=== PATIENT | female | born 1965 | race Caucasian/White ===

== ENCOUNTER 2016-11-19 13:33 | Emergency (ER) | payer OTHER ==
[~2016-11-19] VITALS: Ht 162.6 cm; Wt 63.4 kg
[2016-11-19 13:42] VITALS: BP 121/77; TEMP 36.9; Ht 162.6 cm; Wt 63.4 kg
--- NOTE | 2016-11-19 14:19 | EMERGENCY ROOM VISIT NOTE ---
ED Visit Note First contact with patient: 13:55 I have seen and examined this patient with Valerio Herron and generally agree with the treatment plan as discussed.
[2016-11-19] MEDS ORDERED: OXYC-57 PO (15:35)
--- NOTE | 2016-11-19 15:47 | DIAGNOSTIC IMAGING REPORT ---
LUMBAR SPINE 5 VIEWS CLINICAL HISTORY: Fall with low back pain. FINDINGS: 5 views of the lumbar spine are obtained. No prior studies are available for comparison at the time of dictation. The skeletal structures appear osteopenic. There is no radiographic evidence of fracture or malalignment. Vertebral body height and alignment are maintained. The transverse and spinous processes are intact. There is no evidence of spondylolysis. Mild to moderate degenerative disc space narrowing seen at L5-S1. The remaining intervertebral disc spaces are well-maintained. Mild facet arthropathy seen in the lower lumbar spine. The visualized bony pelvis appears intact. There is a hemitransitional left lumbosacral segment. There is a nonobstructed abdominal bowel gas pattern noting moderate colonic fecal retention. Cholecystectomy clips are identified in the right upper quadrant. Additional surgical clips are present in the pelvis. Suture material is noted in the right lower quadrant. There is moderate to advanced atherosclerotic calcification of the abdominal aorta, greater than expected for age. IMPRESSION: 1. No acute bony abnormality is seen involving the lumbosacral spine. 2. Osteopenia and minimal degenerative change as above. 3. Moderate colonic fecal retention. Electronically signed by: Ryley Gonzales M.D. 11/19/2016 3:45 PM
--- NOTE | 2016-11-19 15:49 | DIAGNOSTIC IMAGING REPORT ---
SACRUM AND COCCYX 3 VIEWS CLINICAL HISTORY: Fall with sacral pain. FINDINGS: 3 views of the sacrum and coccyx are obtained. No prior studies are available for comparison at the time of dictation. The skeletal structures are osteopenic. There is no radiographic evidence of sacral or coccygeal fracture. The remainder of the imaged hemipelvis appears intact. There is a left-sided hemitransitional lumbosacral segment. Surgical clips are noted in the pelvis. There is a nonobstructed abdominal bowel gas pattern noting moderate colonic fecal retention. Suture material seen in the right lower quadrant. IMPRESSION: There is no radiographic evidence of sacrococcygeal fracture. Electronically signed by: Ryley Gonzales M.D. 11/19/2016 3:47 PM
[2016-11-19 15:57] VITALS: PULSE 61; O2SAT 96
--- NOTE | 2016-11-20 23:58 | EMERGENCY ROOM VISIT NOTE ---
ED Visit Note First contact with patient: 13:55 Chief Complaint: Back pain. History of Present Illness: Ms. Holland is a 51-year-old white female who ambulates into the ED complaining of lumbar and sacrum/coccyx back pain. Patient denies any previous significant past medical history. Patient reports approximately 18 hours ago she was walking downstairs into a basement, tripped and fell down 3 stairs. She reports before the fall she was not having any lightheadedness or dizziness, at the time of the fall she did not strike her head or have loss of consciousness and since the injury she denies all signs of head injuries. Currently she is complaining of a constant sharp pain over the L3 through L5 area and over the mid sacrum to the coccyx area. She rates her discomfort 5/ 10. Her pain is nonradiating. Her pain worsens with palpation and moving from the sitting to the standing position. She has not identified any alleviating factors related to the pain. She has taken [id number] medications without relief of her discomfort. She denies any associated symptoms including neck pain, upper back pain, abdominal pain, nausea, vomiting, diarrhea, constipation, urinary symptoms, hematuria, vaginal bleeding, vaginal discharge, genital/rectal paresthesias, bowel and bladder dysfunction, lower extremity weakness/numbness/tingling. Review of Systems: As noted above in history of present illness. 8 body systems were reviewed and found to be negative as noted above. Past Medical History: Patient denies. Current Medications: Patient denies. Allergies to Medications: Patient denies. Social History: Patient is not employed; she lives with her and feels safe in her home environment; she admits to tobacco use and denies alcohol use. Physical Examination: Vital Signs: Date Time Temp Pulse Resp B/P Pulse Ox O2 Delivery O2 Flow Rate FiO2 11/19/16 15:57 61 18 96 11/19/16 13:42 36.9 89 18 121/77 95 Room Air GENERAL: 51-year-old female in mild to moderate distress due to pain, nontoxic- appearing, afebrile and hemodynamically stable. NEUROLOGICAL: Awake, alert and oriented to person, place and time. Answering questions appropriately and following commands. Normal gait. Good hand eye coordination. No focal motor sensory deficits. SKIN: Warm, dry and pink. No soft tissue trauma noted. HEENT: Atraumatic and normocephalic. BACK: No tenderness over the bony cervical and thoracic spine. No CVA tenderness. Moderate tenderness over the L4-L5 bony prominences without deformity, crepitus, step-offs, swelling or ecchymosis. Moderate to severe tenderness over the mid sacrum and coccyx area without bony deformity, crepitus , step-offs, swelling or ecchymosis. Negative straight leg raise test. Full range of motion of the lumbar spine. THORAX: Lungs sounds are clear to auscultation and equal bilaterally with symmetrical chest wall. ABDOMEN: Flat, soft and nontender. Positive bowel sounds in all quadrants. No guarding, rigidity or organomegaly. LOWER EXTREMITIES: No gross bony deformity. No tenderness over the hips, thighs , knees, lower legs, ankles or feet. 2+ patellar and Achilles deep tendon reflexes intact and equal bilaterally. 4/5 muscle strength in hip flexion, extension, abduction and abduction, knee flexion and extension and plantar flexion and dorsiflexion. Throughout the lower legs to skin was warm and pink and capillary refill is brisk. She is able to distinguish light sensations through all dermatomes of the lower legs and feet. ED Course: Patient is assessed as noted above. Lumbar Spine X-Rays: Shows no fractures or subluxations. Mild to moderate degenerative disc narrowing at the L5-S1 area. Sacrum/Coccyx X-Rays: Were reviewed by myself and read by the radiologist showing no evidence of fractures. Patient was educated about tonight's findings and instructed on her treatment plan; she verbalized understanding and agreement with this plan. Clinical Impression: Lumbar back pain. Sacrum/coccyx pain. Status post fall. Disposition: Patient discharged home in stable condition accompanied by her ; prior to departure she was reassessed and subjectively reported she was feeling the same. Plan: Comfort measures were discussed with the patient including the use of ice, a tailbone doughnut pillow and a sliding pain medication scale of ibuprofen, acetaminophen and Percocet. Patient was encouraged to follow-up with family physician for recheck if no better in 3-5 days. Patient was encouraged return ED for worsening/uncontrolled pain, leg weakness/ numbness/tingling, numbness and tingling in her rectum or genital areas, inability to control bowel and bladder functions, bloody stools or bloody urine or any new/concerning symptoms.
== END 2016-11-19 15:58 | disposition home or self-care (01) ==
LOC: C.EDB 13:34 → C.EDD 15:58
DX: M54.5 Low back pain (principal); W10.9XXA Fall (on) (from) unspecified stairs and steps, initial encounter; Y92.018 Other place in single-family (private) house as the place of occurrence of the external cause; Z72.0 Tobacco use

== ENCOUNTER 2016-11-22 11:32 | Emergency (ER) | payer OTHER ==
[~2016-11-22] VITALS: Ht 162.6 cm; Wt 61.8 kg
[~2016-11-22 11:32] MED LIST: OXYC-57 PO
[2016-11-22 11:49] VITALS: TEMP 36.8; Ht 162.6 cm; Wt 61.8 kg
[2016-11-22] MEDS ORDERED: ASPI-232 PO (12:01)
[2016-11-22] MEDS ORDERED: FLUT0.15 (12:01)
[2016-11-22] MEDS ORDERED: TRAZ300T PO (12:01)
[2016-11-22] MEDS ORDERED: ACET-1256 PO (12:01)
[2016-11-22] MEDS ORDERED: OXYCODONE HCL IR 5 MG TAB (IMMEDIATE RELEASE) PO STA (12:30)
--- NOTE | 2016-11-22 13:14 | DIAGNOSTIC IMAGING REPORT ---
CT LUMBAR SPINE WITHOUT CT DOSE: 304.42 mGycm CLINICAL HISTORY: Low back pain status post trauma TECHNIQUE: Helical images were acquired in transverse plane. Reformatted sagittal and coronal images were reviewed. CONTRAST: No contrast was administered COMPARISON STUDY: None. FINDINGS: L1-2 level: There is no evidence of significant disc bulge or focal herniation. There is no evidence of spinal or foraminal stenosis. L2-3 level: There is no evidence of significant disc bulge or focal herniation. There is minimal spinal canal narrowing on a congenital basis. There is no significant foraminal narrowing L3-4 level: There is a mild circumferential disc bulge. There is mild spinal canal narrowing. There is no significant foraminal narrowing There is minimal spinal canal narrowing. There is no significant foraminal narrowing L4-5 level: There is a left paracentral disc protrusion. There is no significant spinal or foraminal stenosis. L5-S1 level: There is a right L5 pars defect. There is no significant spinal or foraminal stenosis. There is a transitional vertebra with sacralization of the L5 vertebra IMPRESSION: 1. Transitional vertebra with L5 sacralization 2. Right L5 pars defect 3. No acute fractures or traumatic subluxations identified 4. Left paracentral disc protrusion at the L4-5 level. Electronically signed by: Gil Yan M.D. 11/22/2016 1:12 PM
--- NOTE | 2016-11-22 13:42 | DIAGNOSTIC IMAGING REPORT ---
PELVIS CT CT DOSE: 453.82 mGycm HISTORY: Low back pain radiating into pelvis TECHNIQUE: Multiaxial CT images of the pelvis were performed and reformatted in the sagittal and coronal plane without the use of contrast. COMPARISON: None. FINDINGS: Right L5 pars defect. No fracture or dislocation within the pelvis or hips. The sacrum appears intact. Mild the bladder, uterus, bilateral adnexa are unremarkable. Questionable thickening of the rectum is likely due to underdistention. Trace pelvic free fluid. No evidence for a pelvic hematoma. Osteoarthritis within the bilateral hips. IMPRESSION: No fracture or dislocation within the pelvis or hips. Electronically signed by: Yovany Ramírez M.D. 11/22/2016 1:40 PM
--- NOTE | 2016-11-22 14:05 | EMERGENCY ROOM VISIT NOTE ---
History First contact with patient: 12:02 Chief Complaint: BACK PAIN Stated Complaint: BACK PAIN History of Present Illness The patient is a 51 year old female who presents to the Emergency Room via private vehicle accompanied by male significant other with complaints of "back. ". The patient was noted to be here only a few days ago and received radiographs of which did not reveal any acute abnormalities. The patient presents today noting that on she was at her son's house in [place] when she fell on steps leading to the basement. She states that the pain meds that she was provided with had worked she's also been taking Tylenol. The pain is now a 6 out of 10 and has worsened. She denies any new trauma, fevers, chills, abdominal pain, leg pain, lower extremity weakness, bowel or bladder incontinence, numbness or tingling in genital region , blood in her stool or urine, urinary symptoms. Review of Systems A complete 6-point Review of Systems was discussed with the patient, with pertinent positives and negatives listed in the History of Present Illness. All remaining Review of Systems questions can be considered negative unless otherwise specified. Past Medical/Surgical History Ulcers, gallbladder Family History Cancer Social History Smoking Status: Current Every Day Smoker Social History: Patient is currently unemployed, she feels safe at home and does use tobacco products but denies alcohol products. Current/Historical Medications Scheduled Acetaminophen (Tylenol), 1,000 MG PO QID Aspirin (Aspir-81), 1 TAB PO DAILY Trazodone Hcl (Desyrel), 300 MG PO HS Scheduled PRN Fluticasone Propionate (Nasal) (Flonase Allergy Relief), 1 SPRAY NA DAILY PRN for ALLERGIC REACTION Oxycodone/Acetaminophen 5MG/325MG (Percocet 5MG/325MG), 1 TAB PO Q6H PRN for Pain Oxycodone/Acetaminophen 5MG/325MG (Percocet 5MG/325MG), 1 TAB PO Q4H PRN for Severe Pain Allergies Coded Allergies: No Known Allergies (Unverified , 11/22/16) Physical Exam Vital Signs Date Time Temp Pulse Resp B/P Pulse Ox O2 Delivery O2 Flow Rate FiO2 11/22/16 14:40 79 20 145/78 95 11/22/16 14:18 79 20 145/82 95 Room Air 11/22/16 11:49 36.8 100 18 142/86 100 Room Air Physical Exam VITAL SIGNS - Vital signs and nursing notes were reviewed. Patient is currently afebrile, mildly hypertensive at 142/86, borderline tachycardic at 100 bpm, is saturating well on room air 100%. GENERAL -51-year-old female appearing her stated age who is in no acute distress. Communicates well with provider and answers questions appropriately. SKIN - Without rashes. HEAD - NC/AT. NECK - Neck with FROM. Supple to palpation. No cervical spinous processes tenderness. LUNGS - Chest wall symmetric without accessory muscle use, intercostals retractions, or central cyanosis. Normal vesicular breath sounds CTA B/L. No wheezes, rales, or rhonchi appreciated. CARDIAC - RRR with S1/S2. No murmur, rubs, or gallops appreciated. MUSCULOSKELETAL: Patient points to the inferior lumbar spinous processes as a location of her pain that also does radiate into the sacral region. There is pinpoint tenderness to these regions. ABDOMEN - Abdominal contour without pulsations or visible masses. BS normoactive all four quadrants. No tenderness, palpable masses, hepatosplenomegaly, or ascites noted. EXTREMITIES - No clubbing or peripheral cyanosis. No pretibial edema present. Patient is neurovascularly intact in lower extremities. +5/5 strength noted in UE/LE bilaterally. No weakness appreciated upon exam. NEUROLOGIC - Cranial nerves II through XII grossly intact. Sensory intact to light touch throughout. Patellar reflexes +2/4. PSYCH - A&Ox3 and cooperates fully with examiner. Pt is very pleasant and interacts well with examiner. Medical Decision & Procedures ER Provider Diagnostic Interpretation: PELVIS CT CT DOSE: 453.82 mGycm HISTORY: Low back pain radiating into pelvis TECHNIQUE: Multiaxial CT images of the pelvis were performed and reformatted in the sagittal and coronal plane without the use of contrast. COMPARISON: None. FINDINGS: Right L5 pars defect. No fracture or dislocation within the pelvis or hips. The sacrum appears intact. Mild the bladder, uterus, bilateral adnexa are unremarkable. Questionable thickening of the rectum is likely due to underdistention. Trace pelvic free fluid. No evidence for a pelvic hematoma. Osteoarthritis within the bilateral hips. IMPRESSION: No fracture or dislocation within the pelvis or hips. Electronically signed by: Yovany Ramírez M.D. 11/22/2016 1:[address] LUMBAR SPINE WITHOUT CT DOSE: 304.42 mGycm CLINICAL HISTORY: Low back pain status post trauma TECHNIQUE: Helical images were acquired in transverse plane. Reformatted sagittal and coronal images were reviewed. CONTRAST: No contrast was administered COMPARISON STUDY: None. FINDINGS: L1-2 level: There is no evidence of significant disc bulge or focal herniation. There is no evidence of spinal or foraminal stenosis. L2-3 level: There is no evidence of significant disc bulge or focal herniation. There is minimal spinal canal narrowing on a congenital basis. There is no significant foraminal narrowing L3-4 level: There is a mild circumferential disc bulge. There is mild spinal canal narrowing. There is no significant foraminal narrowing There is minimal spinal canal narrowing. There is no significant foraminal narrowing L4-5 level: There is a left paracentral disc protrusion. There is no significant spinal or foraminal stenosis. L5-S1 level: There is a right L5 pars defect. There is no significant spinal or foraminal stenosis. There is a transitional vertebra with sacralization of the L5 vertebra IMPRESSION: 1. Transitional vertebra with L5 sacralization 2. Right L5 pars defect 3. No acute fractures or traumatic subluxations identified 4. Left paracentral disc protrusion at the L4-5 level. Electronically signed by: Gil Yan M.D. 11/22/2016 1:12 PM Medications Administered Medications (Trade) Dose Ordered Sig/Paolo Route Start Time Stop Time Status Last Admin Dose Admin Oxycodone HCl (Roxicodone Immediate Rel Tab) 5 mg NOW STAT PO 11/22/16 12:30 11/22/16 12:31 DC 11/22/16 12:42 5 MG Medical Decision Patient was seen and evaluated as above. I do believe the previous workup was appropriate. After obtaining a thorough history and physical examination and because the patient returned with worsening of her pain in the same location I felt that a more detailed study was warranted. CT scan of the lumbar spine and pelvis were obtained. These were done without contrast. These were performed secondary to the patient's subjective examination and objective examination findings. Patient was given 1 OxyIR for her pain. This was at her request. The CT of the lumbar and pelvis region were obtained. These did not reveal any acute abnormalities. Degenerative changes were noted and these chronic findings were discussed with the patient. She was instructed to call her spine specialists for follow-up. She was instructed to return with any worsening or complications that were thoroughly discussed with her. I do not believe the patient is experiencing any fractures and likely has a contusion of this lumbar spine secondary to her fall. However, in the setting of the chronic findings I do feel that follow-up is still appropriate with a recruiter specialist. She was instructed upon management of this. She was educated on worrisome symptoms in which to return, had questions answered prior to discharge and was discharged home in good condition. The patient did not have any neurologic deficits or any examination findings to suggest cauda equina syndrome. The patient was able to ambulate an axial load. She is likely experiencing a contusion of the lumbar spine. In the evaluation and treatment of this patient following differential diagnoses were entertained: Lumbar contusion, pelvis contusion, pelvis fracture , sacrum fracture, coccyx fracture, lumbar fracture, lumbar strain among others. [place] Drug Monitoring Program Search Results: patient reviewed within database, no issues identified Impression Primary Impression: Fall Additional Impression: Low back pain Departure Information Dispostion Home / Self-Care Condition GOOD Prescriptions Oxycodone/Acetaminophen 5MG/325MG (PERCOCET 5MG/325MG) Tab 1 TAB PO Q4H Y for Severe Pain, #20 TAB Prov: Edy Singh, DO 11/22/16 Referrals No Doctor, Assigned (PCP) José Luis Levy M.D. Patient Instructions A Signature Page, My [facility] Additional Instructions You have been treated in the Emergency Department for Back Pain.You have received pain medicine in the emergency department which impairs your ability to operate a vehicle. It is illegal for you to drive after receiving these medicines. You have been prescribed Percocet to be used for pain control. This is a narcotic medication. You cannot drive or consume alcohol while on this medicine. This medicine should only be used for pain that cannot be controlled with [id number]-fjonhsy pain medicines. Please consider pursing an over-the- counter stool softener to help with any constipation. For pain control, you can use the following ktzk-ekq-[id number] medicines (if >12 yo): - Regular strength (325mg/tab) Tylenol (acetaminophen) 2 tabs every 4-6 hours as needed. Do not exceed 12 tablets in a 24 hour period. Avoid taking more than 4 grams (4000 mg) of Tylenol per day. This includes any other sources of acetaminophen you may take on a regular basis. If this is an acute injury, ice can be applied to the area of pain for the first 3 days to help decrease pain and inflammation. After the first 3 days, a heating pad can be used over the area for continued soothing relief. You should schedule a follow-up appointment in 2-3 days with your Primary Care Provider for further evaluation and treatment of your back pain. Treatment please call [facility] tomorrow morning to schedule follow- up from today's visit. Please let them know that CT scans of your lumbar spine and pelvis were completed here today. They should be able to access these if need be. Return to the Emergency Department if your current symptoms worsen despite treatment course outlined above, or if you develop any of the following symptoms : intractable pain despite aforementioned treatment course, loss of control of your bowel or bladder, numbness or tingling in your groin, or development of a fever. Please return to the emergency department with any new/concerning symptoms.
[2016-11-22] MEDS ORDERED: OXYC-57 PO (14:39)
[2016-11-22 14:40] VITALS: BP 145/78; PULSE 79; O2SAT 95
== END 2016-11-22 14:40 | disposition home or self-care (01) ==
LOC: C.EDB 11:39 → C.EDD 14:40
DX: M54.5 Low back pain (principal); W19.XXXA Unspecified fall, initial encounter; F17.210 Nicotine dependence, cigarettes, uncomplicated; Z80.9 Family history of malignant neoplasm, unspecified; Z79.82 Long term (current) use of aspirin; Z79.899 Other long term (current) drug therapy

== ENCOUNTER 2017-01-26 12:53 | Emergency (ER) | payer OTHER ==
[~2017-01-26] VITALS: Ht 162.6 cm; Wt 59.7 kg
[~2017-01-26 12:53] MED LIST changes: +ACET-1256 PO; +ASPI-232 PO; +FLUT0.15; +TRAZ300T PO
[2017-01-26 13:08] VITALS: TEMP 36.4; Ht 162.6 cm; Wt 59.7 kg
[2017-01-26] MEDS ORDERED: HYDR-5688 PO (13:34)
[2017-01-26 13:43] VITALS: BP 119/77; PULSE 104; O2SAT 93
--- NOTE | 2017-01-27 11:38 | EMERGENCY ROOM VISIT NOTE ---
ED Visit Note First contact with patient: 13:19 Chief Complaint: Back pain. History of Present Illness: Ms. Holland is a 51-year-old white female who ambulates into the ED accompanied by a male friend complaining of lumbar back pain. Patient denies any previous significant past medical history. Patient reports approximately 5 hours ago she was cleaning at her home and was attempting to lift a love seat. She reports she twisted and felt a popping sensation in her lower back and since that time has been having moderate to severe pain. Historically she does report that she fell down steps approximately 2 months ago and was evaluated and found to have no significant injuries. Currently she is complaining of a constant sharp pain over the L3 through L5 area. She rates her discomfort 7/10. Her pain is nonradiating. Her pain worsens with palpation and in all movements at the waist. She has not identified any alleviating factors related to the pain. She has taken over-the- counter medications without relief of her discomfort. She denies any associated symptoms including neck pain, upper back pain, abdominal pain, nausea , vomiting, diarrhea, constipation, urinary symptoms, hematuria, vaginal bleeding, vaginal discharge, genital/rectal paresthesias, bowel and bladder dysfunction, lower extremity weakness/numbness/tingling. Review of Systems: As noted above in history of present illness. 8 body systems were reviewed and found to be negative as noted above. Past Medical History: Patient denies. Current Medications: Medications Dose Route/Sig Max Daily Dose Days Date Category Dose Instructions Aspir-81 (Aspirin) 81 Mg Tab 1 Tab PO DAILY 90 11/22/16 Reported Tylenol (Acetaminophen) 500 Mg Tab 1,000 Mg PO QID PRN 11/22/16 Reported Flonase Allergy Relief (Fluticasone Propionate (Nasal)) 50 Mcg/Act Spr 1 [place] NA DAILY PRN 11/22/16 Reported Desyrel (Trazodone Hcl) 300 Mg Tab 300 Mg PO HS 11/22/16 Reported Allergies to Medications: Patient denies. Social History: Patient is not employed; she lives with her and feels safe in her home environment; she admits to tobacco use and denies alcohol use. Physical Examination: Vital Signs: Date Time Temp Pulse Resp B/P Pulse Ox O2 Delivery O2 Flow Rate FiO2 01/26/17 13:43 104 16 119/77 93 3/10/17 13:08 36.4 104 16 119/77 93 Room Air GENERAL: 51-year-old female in mild to moderate distress due to pain, nontoxic- appearing, afebrile and hemodynamically stable. NEUROLOGICAL: Awake, alert and oriented to person, place and time. Answering questions appropriately and following commands. Normal gait. Good hand eye coordination. No focal motor sensory deficits. SKIN: Warm, dry and pink. No soft tissue trauma noted. HEENT: Atraumatic and normocephalic. BACK: No tenderness over the bony cervical and thoracic spine. No CVA tenderness. Moderate tenderness over the L3-L5 bony prominences without deformity, crepitus, step-offs, swelling or ecchymosis. Moderate to severe tenderness over the surrounding paraspinal's muscles without palpable spasm. Decreased range of motion in all movements of the lumbar spine. Negative straight leg raise test. Full range of motion of the lumbar spine. THORAX: Lungs sounds are clear to auscultation and equal bilaterally with symmetrical chest wall. ABDOMEN: Flat, soft and nontender. Positive bowel sounds in all quadrants. No guarding, rigidity or organomegaly. LOWER EXTREMITIES: 2+ patellar and Achilles deep tendon reflexes intact and equal bilaterally. 4/5 muscle strength in hip flexion, extension, abduction and abduction, knee flexion and extension and plantar flexion and dorsiflexion. Throughout the lower legs to skin was warm and pink and capillary refill is brisk. She is able to distinguish light sensations through all dermatomes of the lower legs and feet. ED Course: Patient is assessed as noted above. Patient was educated about tonight's findings and instructed on her treatment plan; she verbalized understanding and agreement with this plan. Clinical Impression: Lumbar back sprain. Disposition: Patient discharged home in stable condition accompanied by her ; prior to departure she was reassessed and subjectively reported she was feeling the same. Plan: Comfort measures were discussed with the patient including the use of ice, and a pain medication scale of ibuprofen, acetaminophen and [place]; she was given appropriate warnings about narcotic use. Patient was encouraged to follow-up with PCP for recheck if no better in 3-5 days. Patient was encouraged return ED for worsening/uncontrolled pain, leg weakness/ numbness/tingling, numbness and tingling in her rectum or genital areas, inability to control bowel and bladder functions or any new/concerning symptoms.
== END 2017-01-26 13:46 | disposition home or self-care (01) ==
LOC: C.EDB 12:53 → C.EDD 13:46
DX: S39.012A Strain of muscle, fascia and tendon of lower back, initial encounter (principal); X50.1XXA Overexertion from prolonged static or awkward postures, initial encounter; Y92.019 Unspecified place in single-family (private) house as the place of occurrence of the external cause; Z79.82 Long term (current) use of aspirin; Z79.899 Other long term (current) drug therapy

== ENCOUNTER 2017-02-09 13:25 | Emergency (ER) | payer OTHER ==
[~2017-02-09] VITALS: Ht 162.6 cm; Wt 64.0 kg
[~2017-02-09 13:25] MED LIST changes: +HYDR-5688 PO
[2017-02-09 13:35] VITALS: TEMP 36.9; Ht 162.6 cm; Wt 64.0 kg
[2017-02-09] MEDS ORDERED: PRED20TA PO (14:05)
--- NOTE | 2017-02-09 14:05 | EMERGENCY ROOM VISIT NOTE ---
ED Visit Note First contact with patient: 13:37 CHIEF COMPLAINT: Low back pain HISTORY OF PRESENT ILLNESS: This 51-year-old female patient presents to the emergency department ambulatory complaining of pain in the low back which is chronic in nature but increased 2 days ago. The patient states that she does have a history of chronic low back pain, but it has worsened over the past 2 days. The pain radiates from the left side of the low back into the left leg. She reports associated tingling into the left leg. The patient notes the pain as sharp and a 7/10. The patient has taken Tylenol and ibuprofen at home without relief of the pain. The patient denies any loss of control of their bowel or bladder functions. There has been no leg numbness or weakness. No nausea or vomiting or abdominal pain. No chest pain or shortness of breath. No dysuria or increased urinary frequency. The patient reports that previously , she has been seen by a spinal surgeon for her low back pain. She reports that she did call them and has an appointment in a few weeks. She reports that she does not currently have a primary care provider. REVIEW OF SYSTEMS: A review of systems was performed with positives and pertinent negatives listed in the history of present illness. All other systems were reviewed and are negative. ALLERGIES: No known drug allergies MEDICATIONS: Trazodone PMH: Cholecystectomy, the patient is otherwise healthy. SOCIAL HISTORY: The patient lives locally with her family. She is a smoker and denies alcohol use. PHYSICAL EXAM: VITALS: Vitals are noted on the nurse's note and reviewed by myself. Vital signs stable. GENERAL: This is a 51-year-old female, in no acute distress, nondiaphoretic, well-developed well-nourished. SKIN: The skin was without rashes, erythema, edema, or bruising. Capillary refill less than 2 seconds. NECK: Supple without nuchal rigidity. No cervical spine tenderness. No paraspinous muscle tenderness. HEART: Regular rate and rhythm without murmurs gallops or rubs. LUNGS: Clear to auscultation bilaterally without wheezes, rales or rhonchi. ABDOMEN: Positive bowel sounds x 4. Normal tympanic percussion. Soft, nontender, without masses or organomegaly. Packer sign negative. MUSCULOSKELETAL: No muscle atrophy, erythema, or edema noted of the back. There is no tenderness over the lumbar spinous processes. There is tenderness over the left lumbar paraspinous muscles. There is no tenderness over the thoracic spine or paraspinous muscles. There are no muscle spasms present. The patient has full range of motion of the spine. Normal gait. Negative straight leg raise test. NEURO: Patient was alert and oriented to person place and time. Normal sensation to light and sharp touch. Deep tendon reflexes 2+ in the lower extremities. Dorsalis pedis pulse 2+ bilaterally. Strength 5/5 and equal in the bilateral lower extremities. EMERGENCY DEPARTMENT COURSE: The patient was evaluated as above. The patient's physical examination is benign. There is nothing to suggest cauda equina syndrome or cord compression. There are no fevers to suggest infection. The patient does have a history of chronic back pain and states this feels like her typical back pain. Previous records were reviewed. The patient has been here 3 times so far this year for back pain. She has received narcotic prescriptions each time. She has been told to follow-up with orthopedic spine or a primary care provider but has not yet done that. The [place] prescription drug monitoring program was queried. The patient has received 14 narcotic prescriptions from 10 different providers in the past one year. Her providers are from several different cities in [place]. I am suspicious for drug-seeking behavior and not comfortable giving the patient any further narcotic prescriptions at this time. I did explain this to her and explained that she will need to follow up with a primary care provider for evaluation and treatment of her chronic back pain. Case management did speak with the patient and give her information for local primary care providers. I did offer the patient a prescription for prednisone and she did accept this. She was instructed to return here if she has any worsening symptoms or red flags. She verbalized understanding of my assessment and treatment plan and was discharged home in good condition. DIAGNOSIS: Lumbar radiculopathy Current/Historical Medications Scheduled Aspirin (Aspir-81), 1 TAB PO DAILY Prednisone (Prednisone), 0 PO DAILY Trazodone Hcl (Desyrel), 300 MG PO HS Scheduled PRN Acetaminophen (Tylenol), 1,000 MG PO QID PRN for Pain Fluticasone Propionate (Nasal) (Flonase Allergy Relief), 1 SPRAY NA DAILY PRN for ALLERGIC REACTION Hydrocodone/Acetaminophen 5MG/325MG ([place] 5MG/325MG), 1 TABLET PO Q6H PRN for Pain Oxycodone/Acetaminophen 5MG/325MG (Percocet 5MG/325MG), 1 TAB PO Q6H PRN for Pain Oxycodone/Acetaminophen 5MG/325MG (Percocet 5MG/325MG), 1 TAB PO Q4H PRN for Severe Pain Allergies Coded Allergies: No Known Allergies (Unverified , 01/26/17) Vital Signs Date Time Temp Pulse Resp B/P Pulse Ox O2 Delivery O2 Flow Rate FiO2 02/09/17 14:28 78 16 109/68 96 02/09/17 13:35 36.9 70 16 107/69 96 Room Air Departure Information Impression Primary Impression: Lumbar radiculopathy Dispostion Home / Self-Care Condition GOOD Prescriptions Prednisone (Prednisone) 20 Mg Tab 0 PO DAILY, #18 TAB 3 DAILY FOR 3 DAYS, THEN 2 DAILY FOR 3 DAYS, THEN 1 DAILY FOR 3 DAYS. Prov: Alice Nails ., TORIN 02/09/17 Referrals No Doctor, Assigned (PCP) Patient Instructions My [facility] Additional Instructions You have been treated in the Emergency Department for Back Pain. Prednisone as prescribed. For pain control, you can use the following [id number] medicines (if >12 yo): - Regular strength (325mg/tab) Tylenol (acetaminophen) 2 tabs every 4-6 hours as needed. Do not exceed 12 tablets in a 24 hour period. Avoid taking more than 4 grams (4000 mg) of Tylenol per day. This includes any other sources of acetaminophen you may take on a regular basis. - Regular strength (200 mg/tab) Advil (ibuprofen) 1-2 tabs every 4-6 hours as needed. Do not exceed a dose of 3200 mg per day. If this is an acute injury, ice can be applied to the area of pain for the first 3 days to help decrease pain and inflammation. After the first 3 days, a heating pad can be used over the area for continued soothing relief. You should follow-up with a primary care provider regarding your chronic back pain. Return to the Emergency Department if your current symptoms worsen despite treatment course outlined above, or if you develop any of the following symptoms : intractable pain despite aforementioned treatment course, loss of control of your bowel or bladder, numbness or tingling in your groin, or development of a fever.
[2017-02-09 14:28] VITALS: BP 109/68; PULSE 78; O2SAT 96
== END 2017-02-09 14:29 | disposition home or self-care (01) ==
LOC: C.EDB 13:28 → C.EDD 14:29
DX: M54.16 Radiculopathy, lumbar region (principal); Z90.49 Acquired absence of other specified parts of digestive tract; F17.200 Nicotine dependence, unspecified, uncomplicated; Z79.82 Long term (current) use of aspirin